=== PATIENT | male | born 1970 | race Two or more races ===

== ENCOUNTER → 2024-02-25 | Emergency (ER) | payer OTHER ==
[~2024-02-25] VITALS: Ht 162.6 cm; Wt 54.4 kg
[~2024-02-25] MED LIST: 0.9 % SODIUM CHLORIDE 500 ML IV STA; MULTIVIT INFUSN,ADULT 4,VIT K 10 ML VIAL IV STA
[2024-02-25 14:51] LABS: HEMATOCRIT 43.4 % (39.0-48.0); HEMOGLOBIN 14.6 g/dL (13-16.00); MEAN CELL VOLUME 87.7 fL (80.0-100.00); MEAN CORPUSCULAR HEMOGLOBIN 29.5 pg (27.00-32.0); MEAN CORPUSCULAR HGB CONC 33.6 g/dl (32.0-36.0); PLATELET COUNT 267 K/uL (150-450); RED BLOOD COUNT 4.95 M/uL (4.00-6.00); RED CELL DISTRIBUTION WIDTH 13.7 % (11.5-14.5)
[2024-02-25 15:35] LABS: ALBUMIN 4.1 gm/dL (3.4-5.0); BILIRUBIN TOTAL 1.19 mg/dL (0.3-1.2); CALCIUM 9.7 mg/dL (8.5-10.1); CREATININE SERUM 0.95 mg/dL (0.70-1.30); GFR 82.62; GLOBULINA 4.1 G/DL (2.4-3.5); POTASSIUM 4.48 mEq/L (3.5-5.1); TOTAL PROTEIN 8.2 gm/dL (6.4-8.2)
== END | disposition home or self-care (01) ==
LOC: ER 11:58
PROVIDERS: General Practice
DX: T18.128A Food in esophagus causing other injury, initial encounter (principal); R10.13 Epigastric pain
CPT/HCPCS: 36415; 70491; 71250; 96365; 96366; 99284; J3490; J7042; Q9965